=== PATIENT | male | born 1960 | race Two or more races ===

== ENCOUNTER 2019-10-27 11:42 | Emergency (ER) | payer SELFPAY ==
[~2019-10-27] VITALS: Ht 170.2 cm; Wt 99.8 kg
[2019-10-27 13:51] VITALS: BP 117/62
== END 2019-10-27 14:19 | disposition home or self-care (01) ==
LOC: ER 11:42
DX: J84.89 Other specified interstitial pulmonary diseases (principal); J40 Bronchitis, not specified as acute or chronic; E11.9 Type 2 diabetes mellitus without complications; I10 Essential (primary) hypertension; F17.210 Nicotine dependence, cigarettes, uncomplicated
CPT/HCPCS: 71045

== ENCOUNTER 2024-12-11 18:47 | Inpatient (IN) | payer BC, OTHER ==
[~2024-12-11] VITALS: Ht 170.2 cm; Wt 90.3 kg
--- NOTE | 2024-12-11 19:10 | ED.PDOC ---
General HPI Comments 64-year-old male who came to ER due to urinary issues. Patient has history of hypertension, diabetes and kidney stones. Patient has poor compliance to his medications. States for the past 3 days, he has been having gross hematuria, with suprapubic abdominal pain and lower back pains. Denies any nausea or vomit ing. Denies any dysuria or fever. Upon arrival blood pressure was 225/134 mm Hg Chief Complaint: Urinary Time Seen by MD: 19:09 Reviewed notes: Nurses Notes Allergies: Coded Allergies: NO KNOWN ALLERGIES (Unverified , 10/27/19) Information Source: Patient Mode of Arrival: Ambulatory Severity: Moderate Timing: Days Duration: Since onset Has not urinated for: Minutes Onset: Spontaneous Symptoms: Hematuria History of: Kidney stone Location: Suprapubic associated signs and symptoms: Abdominal Pain, Hematuria Past Medical History PAST MEDICAL HISTORY: DM, HTN, Kidney Stones Surgical History: Denies all surgeries Family History Family History: Reviewed,noncontributory to illness Social History Smoker: Cigarettes Alcohol: Denies ETOH Use Drugs: Denies Drug Use Lives In: Home Constitutional: denies: chills, diaphoresis, fatigue, fever, malaise, sweats, weakness, others EENTM: denies: blurred vision, double vision, ear bleeding, ear discharge, ear drainage, ear pain, ear ringing, eye pain, eye redness, hearing loss, mouth pain, mouth swelling, nasal discharge, nose bleeding, nose congestion, nose pain, photophobia, tearing, throat pain, throat swelling, voice changes, others Respiratory: denies: cough, hemoptysis, orthopnea, SOB at rest, shortness of breath, SOB with excertion, stridor, wheezing, others Cardiovascular: denies: chest pain, dizzy spells, diaphoresis, Dyspnea on exertion, edema, irregular heart beat, left arm pain, lightheadedness, palpitations, PND, syncope, others Gastrointestinal: reports: abdominal pain Genitourinary: reports: hematuria; denies: burning, dysuria, flank pain, frequency, incontinence, penile discharge, penile sore, pain, testicle pain, testicle swelling, urgency, others Neurological: denies: dizziness, fainting, headache, left sided numbness, left sided weakness, numbness, paresthesia, pre-existing deficit, right sided numbness, right sided weakness, seizure, speech problems, tingling, tremors, weakness, others Musculoskeletal: denies: back pain, gout, joint pain, joint swelling, muscle pain, muscle stiffness, neck pain, others Integumetry: denies: bruises, change in color, change in hair/nails, dryness, laceration, lesions, lumps, rash, wounds, others Allergic/Immunocompromised: denies: Difficulty Healing, Frequent Infections, Hives, Itching, others Hematologic/Lymphatic: denies: anemia, blood clots, easy bleeding, easy bruising, swollen glands, others Endocrine: denies: excessive hunger, excessive sweating, excessive thirst, excessive urination, flushing, intolerance to cold, intolerance to heat, unexplained weight gain, unexplained weight loss, others Psychiatric: denies: anxiety, bipolar disorder, depression, hopeless, panic disorder, schizophrenia, sleepless, suicidal, others Physical Exam General Appearance: No Apparent Distress, Normal HEENT: Normal ENT Inspection, Pharynx Normal, TMs Normal Neck: Full Range of Motion, Non-Tender, Normal, Normal Inspection Respiratory: Chest Non-Tender, Lungs Clear, No Accessory Muscle Use, No Respiratory Distress, Normal Breath Sounds Cardiovascular: No Edema, No JVD, No Murmur, No Gallop, Normal Peripheral Pulses, Regular Rate/Rhythm Breast Exam: Deferred Gastrointestinal: No Organomegaly, Non Tender, No Pulsatile Mass, Normal Bowel Sounds, Soft Genitalia: Deferred Pelvic: Deferred Rectal: Deferred Extremities: No calf tenderness, Normal capillary refill, Normal inspection, Normal range of motion, Non-tender, No pedal edema Musculoskeletal : Apperance: Normal Neurologic: Alert, 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 Was a procedure done?: No Differential Diagnosis Kidney stone (Female): N/A Kidney stone (Male): Strain, Urinary obstruction, Urolithiasis, Renal infarction, Urinary tract infection Penile/Scrotal: N/A Urinary Problem (Male): Urinary Retention, Urolithiasis, UTI Urinary Problem (Female): N/A Time of 1ST Reevaluation: 19:04 Reevaluation 1ST: Unchanged Patient Education/Counseling: Diagnosis, Treatment Family Education/Counseling: No Family Present Critical Care Note Critical Care Time?: Yes (35 min-critical care time only) Critical care comment: Hypertensive urgency Stability Stability form required: No Heart Score Heart Score: Heart Score Response (Comments) Value History N/A 0 EKG N/A 0 Age N/A 0 Risk Factors N/A 0 Troponin N/A 0 Total 0 I personally scribed for FARHAN ALICEA MD ([email or web address]) on 12/11/24 at 19:10. Electronically submitted by Benjie Abarca ([facility]). FARHAN ALICEA MD December 11, 2024 19:10
[2024-12-11 19:15] VITALS: PULSE 95; RESP 15; O2SAT 93
[2024-12-11 19:19] LABS: Basophils # (auto) 0 10 ^3/uL (0-0.2); Basophils % (auto) 0.5 % (0.0-2.0); Eosinophils # (auto) 0.2 10 ^3/uL (0-0.8); Eosinophils % (auto) 3.3 % (0.0-7.0); Hematocrit 48.8 % (41.0-53.0); Hemoglobin 16.5 g/dL (13.5-17.5); Lymphocytes % (auto) 27.1 % (10.0-50.0); Mean Corpuscular Hemoglobin 28.1 pg (28.0-32.0); Mean Corpuscular Hgb Conc. 33.9 g/dL (32.0-36.0); Mean Corpuscular Volume 83.1 fL (80.0-100.0); Monocytes # (auto) 0.6 10 ^3/uL (0-1.3); Monocytes % (auto) 8.1 % (0.0-12.0); Neutrophils # (auto) 4.6 10 ^3/uL (1.6-8.6); Nucleated Red Blood Cells % 0.3 %; Platelet Count (auto) 134 10^3/uL (140-450); Red Blood Cells 5.88 10^6/uL (4.5-5.90); Red Cell Distribution Width 14.4 % (11.8-14.3); White Blood Cell 7.5 10^3/uL (4.4-10.8)
[2024-12-11 19:27] LABS: Chloride 104 mmol/L (98-107); Potassium 3.8 mmol/L (3.5-5.1); Sodium 136 mmol/L (136-145)
[2024-12-11 19:28] LABS: Anion Gap 9 (5-15); Calcium 10.1 mg/dL (8.7-10.4); Carbon Dioxide 23 mmol/L (20-31)
[2024-12-11 19:33] LABS: BUN/Creatinine Ratio 11.3 (10.0-20.0); Blood Urea Nitrogen 13 mg/dL (9-23)
[2024-12-11 19:36] LABS: Glucose 301 mg/dL (74-106)
[2024-12-11 19:37] LABS: INR 1.15 (0.9-1.15); Partial Thromboplastin Time 34.8 SEC (24.5-34.5)
[2024-12-11 20:16] LABS: Urine Bacteria None Seen /hpf (None Seen); Urine Blood 3+ /uL (Negative); Urine Clarity Clear (Clear); Urine Color Light-Yellow (Yellow); Urine Hyaline Cast FEW /lpf (0 - 2); Urine Protein, UAD 2+ (Negative); Urine Specific Gravity 1.012 (1.001-1.035); Urine Squamous Epithelial Cell FEW /hpf (<5); Urine Urobilinogen Normal (Negative); Urine WBC 11 /HPF (0-3)
--- NOTE | 2024-12-11 20:19 | DVH ---
EXAM: CT HEAD WITHOUT CONTRAST INDICATION: htn carolyne TECHNIQUE: CT of the head without intravenous contrast. Radiation Dose : 1. Head: CT Dose: CTDI volume is 61.25 mGy. Dose-length product is 1206.82 mGy*cm The dose indicators for CT are the volume Computed Tomography (CT) Dose Index (CTDIvol) and the Dose Length Product (DLP), and are measured in units of mGy and mGy-cm, respectively. These indicators are not patient dose, but values generated from the CT scanner acquisition factors. The report includes radiation exposure data for exposures received during this examination. COMPARISON: None FINDINGS: There is no evidence of acute intracranial hemorrhage, extra-axial collection, mass effect, midline s hift, herniation or hydrocephalus. The ventricles, sulci and cisterns are age appropriate. The santamaria-white differentiation is intact. Patchy periventricular and subcortical white matter hypoattenuation is nonspecific but may be related to small vessel ischemic disease. The visualized paranasal sinuses and mastoid air cells are clear. The surrounding soft tissues and osseous structures are unremarkable. IMPRESSION: 1. No acute intracranial abnormality. Radiation optimization: All CT scans at this facility use at least one of these dose optimization elenita hniques: automated exposure control mA and/or kV adjustment per patient size (includes targeted exam s where dose is matched to clinical indication) or iterative reconstruction.
--- NOTE | 2024-12-11 20:20 | DVH ---
CHEST RADIOGRAPH Indication: htn Technique: Single frontal view of the chest was obtained COMPARISON: None FINDINGS: Lines and Tubes: None Lungs: Clear Pleura: No effusion. No pneumothorax. Cardiomediastinal contours: Unremarkable IMPRESSION: No abnormality demonstrated.
[2024-12-11] MEDS: SODIUM CHLORIDE 0.9% 1,000 ML IV ONE (20:22)
[2024-12-11] MEDS: hydrALAZINE HCL 20 MG/ML VL IV ONE (20:23)
--- NOTE | 2024-12-11 20:29 | DVH ---
Exam: CT CT AB PEL WO CON-NO ORAL OR IV History: hematuria Comparison Study: None available at time of dictation. TECHNIQUE: Multidetector CT of the abdomen was performed from lung bases to pubic symphysis. Imaging was performed without IV contrast. Axial, coronal and sagittal multiplanar reformats were obtained fr om the axial data set by the technologist. Radiation Dose Information: CT Dose: CTDI volume is 13.75 mGy. Dose-length product is 739.3 mGy*cm FINDINGS: Evaluation of solid organs is limited due to lack of intravenous contrast use. Findings: Lung Bases: No acute or significant lung base finding. Normal heart size. No pleural or pericardial effusion. Liver: The liver is normal in size. No focal lesions. Gallbladder and Biliary Tree: Unremarkable Spleen: Unremarkable Pancreas: The pancreas is grossly normal in appearance. Adrenal Glands: Unremarkable Kidneys: Kidneys are grossly normal without calculi or hydronephrosis. Bladder: The bladder close to the bladder fundus appears to be a 12 x 19 mm soft tissue density May o r may not be attached to the anterior wall of the bladder. This may represent blood clot or polyp or neoplasm. Bowel: The stomach is grossly normal in appearance. Small bowel and colon are normal in caliber and d istribution. The appendix is not visualized; however, no secondary findings of acute appendicitis id entified. Ascites: Absent Lymphadenopathy: No mesenteric, retroperitoneal or periportal lymphadenopathy. Abdominal Wall and Mesentery: 17 18 mm fat containing umbilical hernia Vasculature: The visualized abdominal aorta is normal in size and caliber. Evaluation of abdominal a nd pelvic vessels is limited due to lack of intravenous contrast. Pelvic Organs: Unremarkable Musculoskeletal: No aggressive focal bony lesions, acute fractures or dislocation. Soft tissues: Unremarkable IMPRESSION: 1. No nephrolithiasis or hydronephrosis. 2. 12 x 19 mm soft tissue density close to the fundus of the bladder. Attachment to the anterior wall of the bladder can not be ruled out. This may represent a blood clot a tumor or a polyp. Radiation optimization: All CT scans at this facility use at least one of these dose optimization te chniques: automated exposure control mA and/or kV adjustment per patient size (includes targeted exa ms where dose is matched to clinical indication) or iterative reconstruction.
[2024-12-11] MEDS ORDERED: HYDROcodone-ACET 5/325MG TAB PO PRN (21:45)
[2024-12-11] MEDS ORDERED: DOCUSATE SOD 100 MG CAP PO PRN (21:45)
[2024-12-11] MEDS ORDERED: ACETAMINOPHEN 325 MG TAB PO PRN (21:45)
[2024-12-11] MEDS ORDERED: DEXTROSE (50%) 50ML SYRG IV PRN (21:45)
[2024-12-11] MEDS ORDERED: ONDANSETRON HCL 4 MG/2 ML VIAL IV PRN (21:45)
--- NOTE | 2024-12-11 22:04 | DVHHP2 ---
History of Present Illness Reason for Visit: Hematuria History of Present Illness The patient is a 64-year-old male with past medical history of kidney stones, hypertension, and DM who presented to [facility] ED with complaint of hematuria. Patient has history of hypertension, diabetes and kidney stones. Patient has poor compliance of his medications; states for the past 3 days, he has been having gross hematuria, suprapubic abdominal pain, and lower back pains. Patient was seen and evaluated in the ED, laboratory data shows WBC 7.5, platelets 134, sodium 136, potassium 3.8, BUN 13, creatinine 1.15, glucose 301, troponin 11, BNP 53.69, blood pressure 232/124 trending down to 135/60, heart rate 95, temperature 99.0 F, O2 saturation 94% on oxygen. Please see medication orders section in the computer. On my assessment, patient denied chest pain, no headache, no dizziness, no shortness of breath, no nausea, no vomiting, no fever, no chills. Patient was admitted for further evaluation and medical management. Past Medical History DM, HTN, Kidney Stones Past Surgical History Denies all surgeries Family History Reviewed, noncontributory to the management of this case. Past Social History The patient lives at home, smokes cigarettes, denies alcohol or illicit drugs abuse. Review of Systems Constitutional: No: Fever, Chills, Sweats, Weakness, Malaise, Other Eyes: No: Pain, Vision change, Conjunctivae inflammation, Eyelid inflammation, Other, Redness ENT: No: Ear pain, Ear discharge, Nose pain, Nose discharge, Nose congestion, Mouth pain, Mouth swelling, Throat pain, Throat swelling, Other Respiratory: No: Cough, Dry, Shortness of breath, SOB with excertion, Wheezing, Hemoptysis, Pleuritic Pain, Sputum, Wheezing, Other Cardiovascular: No: Chest Pain, Palpitations, Orthopnea, Paroxysmal Noc. Dyspnea, Edema, Lt Headedness, Other Gastrointestinal: Abdominal Pain; No: Nausea, Vomiting, Diarrhea, Constipation, Melena, Hematochezia, Other Genitourinary: No Dysuria, No Frequency, No Incontinence; Hematuria; No Retention, No Other Musculoskeletal: No: other, neck pain, shoulder pain, arm pain, back pain, hand pain, leg pain, foot pain Skin: No: Rash, Lesions, Jaundice, Bruising, Other Neurological: No: Weakness, Numbness, Incoordination, Change in speech, Confusion, Seizures, Other Allergies: Coded Allergies: NO KNOWN ALLERGIES (Unverified , 10/27/19) Medications Current Medications Medications Dose Ordered Sig/Cesar Route Start Time Stop Time Status Last Admin Dose Admin Hydralazine HCl 10 mg Q6HP PRN IV 12/11/24 21:45 Amlodipine Besylate 5 mg DAILY PO 12/12/24 10:00 Metoprolol Tartrate 25 mg BID PO 12/11/24 22:00 Diagnostic Test (Pha) 1 strip IQ4HR 12/12/24 00:00 Insulin Human Regular IQ4HR SC 12/12/24 00:00 Dextrose 50 ml UD PRN IV 12/11/24 21:45 Sodium Chloride 1,000 ml @ 60 mls/hr [id number] IV 12/11/24 21:45 Acetaminophen/ Hydrocodone Bitart 1 tab Q4HP PRN PO 12/11/24 21:45 Ondansetron HCl 4 mg Q4HP PRN IV 12/11/24 21:45 Docusate Sodium 100 mg BIDPRN PRN PO 12/11/24 21:45 Acetaminophen 650 mg Q6HP PRN PO 12/11/24 21:45 Exam Vital Signs Vital Signs Date Time Temp Pulse Resp B/P (MAP) Pulse Ox O2 Delivery O2 Flow Rate FiO2 12/11/24 20:23 221/129 12/11/24 19:15 95 15 93 Room Air* 0 21 12/11/24 19:15 99.0 99.0 General Appearance: Alert, Oriented X3, Cooperative, No acute distress HEENT: Atraumatic, PERRLA, EOMI, Mucous membr. moist/pink Respiratory: Clear to auscultation, Normal air movement Cardiovascular: Regular rate, Normal S1, Normal S2, No murmurs Abdominal: Normal bowel sounds, Soft, No tenderness, No hepatospenomegaly, No masses Extremities: No clubbing, No cyanosis, No edema, Normal pulses, No tenderness/swelling Skin: No rashes, No breakdown, No significant lesion Neuro: Normal gait, Normal speech, Strength at 5/5 X4 ext, Normal tone, Sensation intact, Cranial nerves 3-12 NL, Reflexes 2+ Psych/Mental Status: Mental status NL, Mood NL Labs/Xrays Labs Test 12/11/24 21:57 12/11/24 20:18 12/11/24 19:06 Range/Units Urine Color Light-yellow Yellow Urine Clarity Clear Clear Urine pH 6.0 5.0-9.0 Urine Specific Gilbert 1.012 1.001-1.035 Urine Protein 2+ H Negative Urine Ketones Negative Negative Urine Blood 3+ H Negative /uL Urine Nitrite Negative Negative Urine Bilirubin Negative Negative Urine Urobilinogen Normal Negative mg/dL Urine Leukocyte Esterase Negative Negative /uL Urine RBC 360 0 - 3 /hpf Urine Microscopic WBC 11 H 0-3 /HPF Urine Squamous Epithelial Cells Few <5 /hpf Urine Bacteria None seen None Seen /hpf Urine Hyaline Casts Few 0 - 2 /lpf Urine Glucose 4+ H Normal mg/dL Troponin I High Sensitivity 11 </=54 ng/L White Blood Count 7.5 4.4-10.8 10^3/uL Red Blood Count 5.88 4.5-5.90 10^6/uL Hemoglobin 16.5 13.5-17.5 g/dL Hematocrit 48.8 41.0-53.0 % Mean Corpuscular Volume 83.1 80.0-100.0 fL Mean Corpuscular Hemoglobin 28.1 28.0-32.0 pg Mean Corpuscular Hemoglobin Concent 33.9 32.0-36.0 g/dL Red Cell Distribution Width 14.4 H 11.8-14.3 % Platelet Count 134 L 140-450 10^3/uL Mean Platelet Volume 9.3 6.9-10.8 fL Neutrophils (%) (Auto) 61.0 37.0-80.0 % Lymphocytes (%) (Auto) 27.1 10.0-50.0 % Monocytes (%) (Auto) 8.1 0.0-12.0 % Eosinophils (%) (Auto) 3.3 0.0-7.0 % Basophils (%) (Auto) 0.5 0.0-2.0 % Neutrophils # (Auto) 4.6 1.6-8.6 10 ^3/uL Lymphocytes # (Auto) 2.0 0.4-5.4 10 ^3/uL Monocytes # (Auto) 0.6 0-1.3 10 ^3/uL Eosinophils # (Auto) 0.2 0-0.8 10 ^3/uL Basophils # (Auto) 0 0-0.2 10 ^3/uL Nucleated Red Blood Cells 0.3 % Prothrombin Time 12.0 H 9.3-11.8 sec Prothrombin Time INR 1.15 0.9-1.15 Activated Partial Thromboplast Time 34.8 H 24.5-34.5 SEC Sodium Level 136 136-145 mmol/L Potassium Level 3.8 3.5-5.1 mmol/L Chloride Level 104 98-107 mmol/L Carbon Dioxide Level 23 20-31 mmol/L Anion Gap 9 5-15 Blood Urea Nitrogen 13 9-23 mg/dL Creatinine 1.15 0.700-1.30 mg/dL Glomerular Filtration Rate Calc 71 >90 mL/min BUN/Creatinine Ratio 11.3 10.0-20.0 Serum Glucose 301 H 74-106 mg/dL Calcium Level 10.1 8.7-10.4 mg/dL B-Type Natriuretic Peptide 53.69 0-100 pg/mL PATIENT: FELIZ NAJERA ACCT: [id number] UNIT: [id number] : 1960 LOC: ER ROOM / BED: / AGE / SEX: 64 / M ADM STATUS: REG ER SERVICE 45 ORDERING PHYSICIAN: FARHAN ALICEA MD PROCEDURE(s): ABPL - CT AB PEL WO CON-NO ORAL OR IV REASON: hematuria ORDER NUMBER(s): [id number], ACCESSION NUMBER(s): [id number] Exam: CT CT AB PEL WO CON-NO ORAL OR IV History: hematuria Comparison Study: None available at time of dictation. TECHNIQUE: Multidetector CT of the abdomen was performed from lung bases to pubic symphysis. Imaging was performed without IV contrast. Axial, coronal and sagittal multiplanar reformats were obtained from the axial data set by the technologist. Radiation Dose Information: CT Dose: CTDI volume is 13.75 mGy. Dose-length product is 739.3 mGy*cm FINDINGS: Evaluation of solid organs is limited due to lack of intravenous contrast use. Findings: Lung Bases: No acute or significant lung base finding. Normal heart size. No pleural or pericardial effusion. Liver: The liver is normal in size. No focal lesions. Gallbladder and Biliary Tree: Unremarkable Spleen: Unremarkable Pancreas: The pancreas is grossly normal in appearance. Adrenal Glands: Unremarkable Kidneys: Kidneys are grossly normal without calculi or hydronephrosis. Bladder: The bladder close to the bladder fundus appears to be a 12 x 19 mm soft tissue density May or may not be attached to the anterior wall of the bladder. This may represent blood clot or polyp or neoplasm. Bowel: The stomach is grossly normal in appearance. Small bowel and colon are normal in caliber and distribution. The appendix is not visualized; however, no secondary findings of acute appendicitis identified. Ascites: Absent Lymphadenopathy: No mesenteric, retroperitoneal or periportal lymphadenopathy. Abdominal Wall and Mesentery: 17 18 mm fat containing umbilical hernia Vasculature: The visualized abdominal aorta is normal in size and caliber. Evaluation of abdominal and pelvic vessels is limited due to lack of intravenous contrast. Pelvic Organs: Unremarkable Musculoskeletal: No aggressive focal bony lesions, acute fractures or dislocation. Soft tissues: Unremarkable IMPRESSION: 1. No nephrolithiasis or hydronephrosis. 2. 12 x 19 mm soft tissue density close to the fundus of the bladder. Attachment to the anterior wall of the bladder can not be ruled out. This may represent a blood clot a tumor or a polyp. ORDERING PHYSICIAN: FARHAN ALICEA MD PROCEDURE(s): CXRP - CHEST PORTABLE REASON: htn ORDER NUMBER(s): [id number], ACCESSION NUMBER(s): [id number] CHEST RADIOGRAPH Indication: htn Technique: Single frontal view of the chest was obtained COMPARISON: None FINDINGS: Lines and Tubes: None Lungs: Clear Pleura: No effusion. No pneumothorax. Cardiomediastinal contours: Unremarkable IMPRESSION: No abnormality demonstrated. ORDERING PHYSICIAN: FARHAN ALICEA MD PROCEDURE(s): HWOCT - HEAD WITHOUT CONTRAST REASON: htn carolyne ORDER NUMBER(s): [id number], ACCESSION NUMBER(s): [id number] EXAM: CT HEAD WITHOUT CONTRAST INDICATION: htn carolyne TECHNIQUE: CT of the head without intravenous contrast. Radiation Dose: 1. Head: CT Dose: CTDI volume is 61.25 mGy. Dose-length product is 1206.82 mGy*cm The dose indicators for CT are the volume Computed Tomography (CT) Dose Index (CTDIvol) and the Dose Length Product (DLP), and are measured in units of mGy and mGy-cm, respectively. These indicators are not patient dose, but values generated from the CT scanner acquisition factors. The report includes radiation exposure data for exposures received during this examination. COMPARISON: None FINDINGS: There is no evidence of acute intracranial hemorrhage, extra-axial collection, mass effect, midline shift, herniation or hydrocephalus. The ventricles, sulci and cisterns are age appropriate. The santamaria-white differentiation is intact. Patchy periventricular and subcortical white matter hypoattenuation is nonspecific but may be related to small vessel ischemic disease. The visualized paranasal sinuses and mastoid air cells are clear. The surrounding soft tissues and osseous structures are unremarkable. IMPRESSION: 1. No acute intracranial abnormality. Assessment/Plan Assessment/Plan Hypertensive urgency Hematuria Diabetes mellitus with hyperglycemia Plan 1. Admit to telemetry unit 2. Breathing treatment 3. Pain control management 4. Management of fluids and electrolytes 5. Consultation for hospitalist 6. Diagnostic tests chest x-ray 7. DVT prophylaxis-on SCDs 8. Repeat labs CBC, CMP in a.m. 9. Continue with current medical management 10. Treatment plan discussed with patient and RN. Patient verbalized understanding. Plan discussed with: Patient, Other (RN) My Orders Orders - SEVERO JUDD DNP Procedure Category Date Status Time Hydralazine Injection PHA 12/11/24 In Process (Apresoline Inject 21:45 Amlodipine Tablet PHA 12/12/24 In Process (Norvasc Tablet) 10:00 Metoprolol Tartrate PHA 12/11/24 In Process Tablet (Lopressor Ta 22:00 * Urology Consult CONS 12/11/24 Transmitted 21:37 Glucose Blood PHA 12/12/24 In Process (Accu-Chek Comfort 00:00 Insulin R (Human) PHA 12/12/24 In Process (Insulin R) 00:00 Dextrose 50% Syringe PHA 12/11/24 In Process 21:45 Allergies BRODERICK 12/11/24 In Process 21:37 Code Status CODE 12/11/24 Transmitted 21:37 Sodium Chloride 0.9% PHA 12/11/24 In Process 21:45 Oxygen Per Hour RT 12/11/24 Transmitted 21:37 Hydrocodone-Acet PHA 12/11/24 In Process 5/325mg Tab ([place] 21:45 Ondansetron Hcl PHA 12/11/24 In Process (Zofran) 21:45 Docusate Sodium PHA 12/11/24 In Process Capsule (Colace 21:45 Complete Blood Count LAB 12/12/24 Verified 04:00 Comprehensive LAB 12/12/24 Verified Metabolic Panel 04:00 Condition: Serious BRODERICK 12/11/24 In Process 21:37 Acetaminophen Tablet PHA 12/11/24 In Process (Tylenol Tablet) 21:45 Bedrest With Bathroom BRODERICK 12/11/24 In Process Privileg 21:37 Sequential BRODERICK 12/11/24 In Process Compression Device Consistent DIET 12/12/24 Transmitted Carb(Ccho)Diabetes Breakfast Admit ADMIT 12/11/24 Verified 22:03 Nitroglycerin PHA 12/11/24 Verified Sublingual (Ntrostat 22:15 Morphine Sulfate PHA 12/11/24 Verified Injection 22:15 Notify Md Of Changes BR[place]ICK 12/11/24 Verified From Base 22:03 [employer] For [facility] 12/11/24 Verified 24 Hours 22:03 Emergency Dysrhythmia [facility] 12/11/24 Verified Protocol 22:03 Oxygen By Nasal RT 12/11/24 Verified Cannula 22:03 Problem List: (1) Hypertensive urgency (2) Hematuria (3) Diabetes mellitus with hyperglycemia Date of Service: December 12, 2024 Billing Provider: SEVERO JUDD DNP Common Visit Codes: [id number] INP/OBS CARE (HIGH) SEVERO JUDD DNP December 11, 2024 22:04
[2024-12-11] MEDS: SODIUM CHLORIDE 0.9% 1,000 ML IV SCH (22:07)
[2024-12-11] MEDS: METOPROLOL TARTRATE 25 MG TAB PO SCH (22:07)
[2024-12-11] MEDS: amLODIPine BESYLATE 5 MG TAB PO ONE (22:07)
[2024-12-11] MEDS ORDERED: MORPHINE SULFATE INJ 2 MG/ml SYRG IV PRN (22:15)
[2024-12-11] MEDS ORDERED: NITROGLYCERIN 0.4 MG SL TAB SL PRN (22:15)
[2024-12-11] MEDS: hydrALAZINE HCL 20 MG/ML VL IV PRN (23:38)
[2024-12-11] MEDS: ACCU-CHEK COMFORT CURVE STRIP VI SCH (23:43)
[2024-12-11] MEDS: InsuLIN REG 1unit/0.01ml Soln (100units/ml) SC SCH (23:46)
[2024-12-12] VITALS (8 sets, daily range): BP systolic 135–155; BP diastolic 60–95; PULSE 58–74; RESP 16–18; TEMP 96.7–98; O2SAT 90–99
[2024-12-12 06:05] LABS: Basophils # (auto) 0.1 10 ^3/uL (0-0.2); Basophils % (auto) 1.1 % (0.0-2.0); Eosinophils # (auto) 0.2 10 ^3/uL (0-0.8); Eosinophils % (auto) 3.5 % (0.0-7.0); Hematocrit 48.6 % (41.0-53.0); Hemoglobin 16.4 g/dL (13.5-17.5); Lymphocytes # (auto) 1.7 10 ^3/uL (0.4-5.4); Lymphocytes % (auto) 24.8 % (10.0-50.0); Mean Corpuscular Hgb Conc. 33.7 g/dL (32.0-36.0); Mean Corpuscular Volume 82.9 fL (80.0-100.0); Monocytes # (auto) 0.6 10 ^3/uL (0-1.3); Monocytes % (auto) 7.9 % (0.0-12.0); Neutrophils # (auto) 4.4 10 ^3/uL (1.6-8.6); Neutrophils % (auto) 62.7 % (37.0-80.0); Nucleated Red Blood Cells % 0.1 %; Platelet Count (auto) 138 10^3/uL (140-450); Red Blood Cells 5.85 10^6/uL (4.5-5.90); Red Cell Distribution Width 14.6 % (11.8-14.3)
[2024-12-12 06:24] LABS: Alanine Aminotransferase 26 U/L (7-40); Anion Gap 10 (5-15); Aspartate Aminotransferase 21 U/L (13-40); BUN/Creatinine Ratio 12.2 (10.0-20.0); Blood Urea Nitrogen 11 mg/dL (9-23); Calcium 9.5 mg/dL (8.7-10.4); Carbon Dioxide 23 mmol/L (20-31); Potassium 3.6 mmol/L (3.5-5.1); Sodium 140 mmol/L (136-145); Total Protein 6.8 g/dL (5.7-8.2)
[2024-12-12 06:25] LABS: Albumin 4.1 g/dL (3.2-4.8); Alkaline Phosphatase 126 U/L (46-116); Bilirubin, Total 0.8 mg/dL (0.2-1.0); Chloride 107 mmol/L (98-107); Glucose 186 mg/dL (74-106)
[2024-12-12] MEDS: amLODIPine BESYLATE 5 MG TAB PO SCH (09:03)
[2024-12-13 01:00] VITALS: BP 137/86; PULSE 57; RESP 19; TEMP 98; O2SAT 95
[2024-12-13 05:00] VITALS: BP 154/84; PULSE 56; RESP 18; TEMP 97.9; O2SAT 92
[2024-12-13 08:00] VITALS: PULSE 63; RESP 17; O2SAT 96
[2024-12-13 09:29] VITALS: BP 164/97; PULSE 58; RESP 18; TEMP 97.6; O2SAT 97
[2024-12-13 13:00] VITALS: BP 155/101; PULSE 55; RESP 18; TEMP 98.1; O2SAT 97
[2024-12-13 15:23] LABS: LDL Cholesterol 89 mg/dL (< 100)
[2024-12-13 15:24] LABS: Cholesterol 142 mg/dL (< 200)
[2024-12-13] MEDS ORDERED: NIFE1TAB30 PO (15:27)
[2024-12-13] MEDS ORDERED: EMPA1TAB PO (15:27)
[2024-12-13] MEDS ORDERED: LOSA100T33 PO (15:27)
[2024-12-13 15:29] LABS: HDL Cholesterol 32 mg/dL (40-59); Triglycerides 287 mg/dL (< 150)
[2024-12-13] MEDS ORDERED: CEPH250C PO (15:30)
[2024-12-13] MEDS: hydrALAZINE HCL 25 MG TAB PO ONE (15:30)
[2024-12-13] MEDS ORDERED: TAMS-35 PO (15:30)
--- NOTE | 2024-12-13 15:32 | DVHDS2 ---
Discharge Summary Date of Admission December 11, 2024 at 22:03 Date of Discharge: December 13, 2024 Admitting Diagnosis Hypertensive urgency Labs/Diagnostic Data: Laboratory Results Test 12/13/24 14:52 12/13/24 12:33 12/12/24 05:31 12/11/24 22:08 POC Glucose 192 mg/dl (70-106) White Blood Count 7.0 10^3/uL (4.4-10.8) Red Blood Count 5.85 10^6/uL (4.5-5.90) Hemoglobin 16.4 g/dL (13.5-17.5) Hematocrit 48.6 % (41.0-53.0) Mean Corpuscular Volume 82.9 fL (80.0-100.0) Mean Corpuscular Hemoglobin 28.0 pg (28.0-32.0) Mean Corpuscular Hemoglobin Concent 33.7 g/dL (32.0-36.0) Red Cell Distribution Width 14.6 % (11.8-14.3) Platelet Count 138 10^3/uL (140-450) Mean Platelet Volume 9.1 fL (6.9-10.8) Neutrophils (%) (Auto) 62.7 % (37.0-80.0) Lymphocytes (%) (Auto) 24.8 % (10.0-50.0) Monocytes (%) (Auto) 7.9 % (0.0-12.0) Eosinophils (%) (Auto) 3.5 % (0.0-7.0) Basophils (%) (Auto) 1.1 % (0.0-2.0) Neutrophils # (Auto) 4.4 10 ^3/uL (1.6-8.6) Lymphocytes # (Auto) 1.7 10 ^3/uL (0.4-5.4) Monocytes # (Auto) 0.6 10 ^3/uL (0-1.3) Eosinophils # (Auto) 0.2 10 ^3/uL (0-0.8) Basophils # (Auto) 0.1 10 ^3/uL (0-0.2) Nucleated Red Blood Cells 0.1 % Sodium Level 140 mmol/L (136-145) Potassium Level 3.6 mmol/L (3.5-5.1) Chloride Level 107 mmol/L (98-107) Carbon Dioxide Level 23 mmol/L (20-31) Anion Gap 10 (5-15) Blood Urea Nitrogen 11 mg/dL (9-23) Creatinine 0.90 mg/dL (0.700-1.30) Glomerular Filtration Rate Calc 95 mL/min (>90) BUN/Creatinine Ratio 12.2 (10.0-20.0) Serum Glucose 186 mg/dL (74-106) Calcium Level 9.5 mg/dL (8.7-10.4) Total Bilirubin 0.8 mg/dL (0.2-1.0) Aspartate Amino Transferase (AST) 21 U/L (13-40) Alanine Aminotransferase (ALT) 26 U/L (7-40) Alkaline Phosphatase 126 U/L (46-116) Total Protein 6.8 g/dL (5.7-8.2) Albumin 4.1 g/dL (3.2-4.8) Troponin I High Sensitivity 13 ng/L (</=54) Test 12/11/24 21:57 12/11/24 19:06 Urine Color Light-yellow (Yellow) Urine Clarity Clear (Clear) Urine pH 6.0 (5.0-9.0) Urine Specific [place] 1.012 (1.001-1.035) Urine Protein 2+ (Negative) Urine Ketones Negative (Negative) Urine Blood 3+ /uL (Negative) Urine Nitrite Negative (Negative) Urine Bilirubin Negative (Negative) Urine Urobilinogen Normal mg/dL (Negative) Urine Leukocyte Esterase Negative /uL (Negative) Urine RBC 360 /hpf (0 - 3) Urine Microscopic WBC 11 /HPF (0-3) Urine Squamous Epithelial Cells Few /hpf (<5) Urine Bacteria None seen /hpf (None Seen) Urine Hyaline Casts Few /lpf (0 - 2) Urine Glucose 4+ mg/dL (Normal) Prothrombin Time 12.0 sec (9.3-11.8) Prothrombin Time INR 1.15 (0.9-1.15) Activated Partial Thromboplast Time 34.8 SEC (24.5-34.5) B-Type Natriuretic Peptide 53.69 pg/mL (0-100) Other Laboratory Tests 12/12/24 05:31 Brief Hx & Hospital Course: The patient is a 64-year-old male with past medical history of kidney stones, hypertension, and DM who presented to [facility] ED with complaint of hematuria. Patient has history of hypertension, diabetes and kidney stones. Patient has poor compliance of his medications; states for the past 3 days, he has been having gross hematuria, suprapubic abdominal pain, and lower back pains. Patient was seen and evaluated in the ED, laboratory data shows WBC 7.5, platelets 134, sodium 136, potassium 3.8, BUN 13, creatinine 1.15, glucose 301, troponin 11, BNP 53.69, blood pressure 232/124 trending down to 135/60. Patients symptoms have improved, will followup with me in clinic, patient started on BP meds, will be counseled on lifestyle modifications and exercise. Condition at Discharge: Stable Final Diagnosis/Problems List Hypertensive urgency Hematuria due to UTI Diabetes mellitus with hyperglycemia Discharge Disposition: Home Discharge Instruct/Medications Diet: Consistent carbohydrate Activity: Light activity Follow Up/Referral: Dr. oFng Urology as outpatient Medications: see med req Discharge Statement: "Patient was advised to return to the ER or call 911 if any headaches, dizziness, shortness of breath, chest pain, abdominal pain, bleeding, fevers, or worsening of medical condition. Patient was counseled about treatment plan, medications, possible side effects, patientverbalized understanding. All questions were answered to the best of my ability. This discharge took greater then 30 minutes in planning, reviewing documentation, counseling the patient, and discussing with other team members." ASSESSMENT ASSESSMENT Assessment Date of Service: December 13, 2024 Billing Provider: LUIS ANTONIO FONG MD Common Visit Codes: [id number] DISCH DAY <30MIN LUIS ANTONIO FONG MD December 13, 2024 15:32
[2024-12-13 16:13] VITALS: BP 158/90; PULSE 64; RESP 17; TEMP 36.7; O2SAT 97
--- NOTE | 2024-12-13 17:00 | DVHPN2 ---
Reviewed: Care Plan, H&P, Labs, Medications, Previous Orders, Radiology Changes from previous H/P or p: No Changes General: Per HPI Eyes: No Pain, No Vision change, No Conjunctivae inflammation, No Eyelid inflammation, No Other, No Redness ENT: No Ear pain, No Ear discharge, No Nose pain, No Nose discharge, No Nose congestion, No Mouth pain, No Mouth swelling, No Throat pain, No Throat swelling, No Other Cardiovascular: No Chest Pain, No Palpitations, No Orthopnea, No Paroxysmal Noc. Dyspnea, No Edema, No Lt Headedness, No Other Respiratory: No Cough, No Dry, No Shortness of breath, No SOB with excertion, No Wheezing, No Hemoptysis, No Pleuritic Pain, No Sputum, No Other Gastrointestinal: No Nausea, No Vomiting; Abdominal Pain; No Diarrhea, No Constipation, No Melena, No Hematochezia, No Other Genitourinary: No Dysuria, No Frequency, No Incontinence; Hematuria; No Retention, No Other Musculoskeletal: No other, No neck pain, No shoulder pain, No arm pain, No back pain, No hand pain, No leg pain, No foot pain Skin: No Rash, No Lesions, No Jaundice, No Bruising, No Other Objective Vitals Vital Signs Date Time Temp Pulse Resp B/P (MAP) Pulse Ox O2 Delivery O2 Flow Rate FiO2 12/13/24 16:13 36.7 64 17 97 12/13/24 13:00 155/101 (119) 12/13/24 08:00 Room Air* 0 21 Intake/Output Intake and Output 12/13/24 07:00 Intake Total 1520 ml Balance 1520 ml Intake Oral 1520 ml # Voids 4 General Appearance: Alert, Oriented X3 Cardiovascular: Regular rate, Normal S1, Normal S2 Abdomen: Normal bowel sounds, Soft Medications Current Medications Medications Dose Ordered Sig/Cesar Route Start Time Stop Time Status Last Admin Dose Admin Hydralazine HCl 10 mg Q6HP PRN IV 12/11/24 21:45 12/11/24 23:38 10 MG Amlodipine Besylate 5 mg DAILY PO 12/12/24 10:00 12/13/24 08:23 5 MG Metoprolol Tartrate 25 mg BID PO 12/11/24 22:00 12/13/24 08:23 25 MG Diagnostic Test (Pha) 1 strip IQ4HR 12/12/24 00:00 12/13/24 12:35 1 STRIP Insulin Human Regular IQ4HR SC 12/12/24 00:00 12/13/24 13:07 3 UNITS Dextrose 50 ml UD PRN IV 12/11/24 21:45 Acetaminophen/ Hydrocodone Bitart 1 tab Q4HP PRN PO 12/11/24 21:45 Ondansetron HCl 4 mg Q4HP PRN IV 12/11/24 21:45 Docusate Sodium 100 mg BIDPRN PRN PO 12/11/24 21:45 Acetaminophen 650 mg Q6HP PRN PO 12/11/24 21:45 Nitroglycerin 0.4 mg Q5MINP PRN SL 12/11/24 22:15 Morphine Sulfate 2 mg Q30M PRN IV 12/11/24 22:15 Laboratory Results Laboratory Tests 12/12/24 05:31 Lipid panel Test 12/13/24 14:52 Cholesterol Level 142 mg/dL (< 200) HDL Cholesterol 32 mg/dL (40-59) L Triglycerides Level 287 mg/dL (< 150) H HgA1c, TSH Test 12/13/24 14:52 Hemoglobin A1c 10.1 % A1C (<5.7) H Thyroid Stimulating Hormone (TSH) 1.00 uIU/mL (0.55-4.78) Urinalysis Test 12/11/24 21:57 Urine Color Light-yellow (Yellow) Urine Clarity Clear (Clear) Urine pH 6.0 (5.0-9.0) Urine Specific [place] 1.012 (1.001-1.035) Urine Protein 2+ (Negative) H Urine Ketones Negative (Negative) Urine Blood 3+ /uL (Negative) H Urine Nitrite Negative (Negative) Urine Bilirubin Negative (Negative) Urine Urobilinogen Normal mg/dL (Negative) Urine Leukocyte Esterase Negative /uL (Negative) Urine RBC 360 /hpf (0 - 3) Urine Microscopic WBC 11 /HPF (0-3) H Urine Squamous Epithelial Cells Few /hpf (<5) Urine Bacteria None seen /hpf (None Seen) Urine Hyaline Casts Few /lpf (0 - 2) Urine Glucose 4+ mg/dL (Normal) H Labs and/or images reviewed: Labs reviewed by me, Image(s) reviewed by me Assessment/Plan Assessment/Plan The patient is a 64-year-old male with past medical history of kidney stones, hypertension, and DM who presented to [facility] ED with complaint of hematuria. Patient has history of hypertension, diabetes and kidney stones. Patient has poor compliance of his medications; states for the past 3 days, he has been having gross hematuria, suprapubic abdominal pain, and lower back pains. Patient was seen and evaluated in the ED, laboratory data shows WBC 7.5, platelets 134, sodium 136, potassium 3.8, BUN 13, creatinine 1.15, glucose 301, troponin 11, BNP 53.69, blood pressure 232/124 trending down to 135/60, heart rate 95, temperature 99.0 F, O2 saturation 94% on oxygen. Please see medication orders section in the computer. On my assessment, patient denied chest pain, no headache, no dizziness, no shortness of breath, no nausea, no vomiting, no fever, no chills. Patient was admitted for further evaluation and medical management. Hypertensive urgency Hematuria Diabetes mellitus with hyperglycemia dysuria awaiting urology evaluation Plan discussed with: Patient Date of Service: December 12, 2024 Billing Provider: YUMIKO GRAVES DO Common Visit Codes: [id number] INP/OBS CARE(HIGH) YUMIKO GRAVES DO December 13, 2024 17:00
[2024-12-14 08:07] LABS: PSA Free 0.32 ng/mL; Prostate Specific Antigen 1.4 ng/mL (0.0-4.0)
== END 2024-12-13 17:04 | disposition home or self-care (01) | DRG 690 ==
LOC: ER 18:47 → OVERFLOW 22:03 → CENTRAL 12-12 01:36
PROVIDERS: ADMIT Internal Medicine; ATTEND Internal Medicine
DX: N39.0 Urinary tract infection, site not specified (principal); I16.0 Hypertensive urgency; E11.65 Type 2 diabetes mellitus with hyperglycemia; R31.0 Gross hematuria; F17.210 Nicotine dependence, cigarettes, uncomplicated; I10 Essential (primary) hypertension; Z87.442 Personal history of urinary calculi
CPT/HCPCS: 36415; 70450; 71045; 74176; 80048; 80053; 80061; 81001; 82306; 82962; 83036; 83880; 84154; 84443; 84484; 85025; 85610; 85730; 96361; 96374; 99291; G0378; J1815

== ENCOUNTER → 2024-12-23 | Outpatient (CLI) | payer BC ==
[~2024-12-23] MED LIST: CEPH250C PO; EMPA1TAB PO; LOSA100T33 PO; NIFE1TAB30 PO; TAMS-35 PO
--- NOTE | 2024-12-23 10:27 | DVHCARD ---
Cardiology Stress Test [place] Treadmill Stress Test [place] Referring MD: MD Hetal Protocol: Herson (with cardiolite) Reason for referral: Chest Pain Target heart Rate:@85%: 131 Percent MPHR: 155 METS: 10.10 Resting Heart rate: 77 Resting Blood Pressure: 159/94 Exercise Heart Rate: 130 Exercise Blood Pressure: 201/93 Reason for Termination of Test: Completion of Protocol Baseline EKG: NSR Stress EKG: Sinus tachycardia with multiple PACs/PVCs and non ST-T segment changes Functional Capacity: Good Normal Heart Rate Response: Adequate Blood Pressure Response: Hypertensive Clinical response: Non-ischemic Arrhythmia?: No Cardiolite Injected?: Yes ST-T Changes: Non/Minimal Probability of Inducible Ische: Perfusion result pending Comments: Uneventful Herson protocol Date of Service: December 23, 2024 Billing Provider: JULIANO MAYFIELD Cardiology Common Codes: PROCEDURE ONLY Treadmill W/Cardiolite Nuclear: [id number], INTERP, RPT JULIANO MAYFIELD December 23, 2024 10:27
--- NOTE | 2024-12-23 15:22 | DVHSR ---
APPROVED REPORT Exam: Nuclear Stress Test Indication: Chest pain BMI: 0 Medical History Medical History: HTN, Diabetes Allergies: No known drug allergies Stress Test Details Stress Test: Exercise stress testing was performed using a Herson protocol. HR Resting HR: 77 bpmMax Heart Rate (APMHR): 155.315914 bpm Max HR Achieved: 130 bpmTarget HR (85% APMHR): 131.145030 bpm % of APMHR: 83.87 Recovery HR: 102 bpm BP Resting BP: 159/94 mmHg Recovery BP: 146/94 mmHg ECG Resting ECG: Sinus Rhythm Clinical Reason for Termination: Completed protocol Exercise duration: 9 min sec Nurse Comments Recieved ambulatory, A/Ox4 on RA, connected to first coat sander, VS stable. PIV S/L flushes well, revi ewed POC, pt verbalized understanding. Ryan DIRECTOR OF AUDIOLOGY here to monitor exam. Treadmill test performed per protocol. Pt stable, tolerated well, VS returned to baseline. Pt to follow up with mental health clinician for results. Stress ECG Conclusion dilated LV severe lv dysfuntion lvef 34% inferior infarct no major ischemia noted ecg shows SR, PVCs clinical correlate NM EXAM: Myocardial Perfusion REST/STRESS Imaging Protocol: Rest Tc-99m/Stress Tc-99m 1 day Resting Data Rest SPECT myocardial perfusion imaging was performed in supine position 45 minutes following the int ravenous injection of 11.0 mCi of Tc-99m Sestamibi. Time of rest injection: 08:45 Date: 12/23/2024 Time of rest imagin:30 Date: 12/23/2024 Administration Route: IV Administration Site: Right AC Exercise Stress At peak stress, the patient was injected intravenously with 31.3mCi of Tc-99m Sestamibi. Time of stress injection: 10:05 Date: 12/23/2024 Time of stress imagin:50 Date: 12/23/2024 Administration Route: IV Administration Site: Right Arm Heart Rate at time of stress injection: 111 bpm. Patient continued to exercise for 3.5 minute(s). Gated Stress SPECT was performed 45 minutes after stress injection. The images were gated to evaluate regional wall motion and calculate left ventricular ejection fracti on. Stress only was performed in the position. Nuclear Conclusion dilated LV severe lv dysfuntion lvef 34% inferior infarct no major ischemia noted ecg shows SR, PVCs clinical correlate
== END | disposition home or self-care (01) ==
LOC: XYW 08:18
PROVIDERS: ATTEND Internal Medicine
DX: I11.0 Hypertensive heart disease with heart failure (principal); E11.65 Type 2 diabetes mellitus with hyperglycemia; I50.30 Unspecified diastolic (congestive) heart failure; E55.9 Vitamin D deficiency, unspecified; D41.4 Neoplasm of uncertain behavior of bladder; R07.9 Chest pain, unspecified
CPT/HCPCS: 78452; 93017; A9500

== ENCOUNTER 2025-01-06 09:35 | Outpatient (CLI) | payer BC | END 2025-01-06 17:00 | disposition home or self-care (01) | LOC: LAB 09:35 | PROVIDERS: ATTEND Urology | DX: N40.0 Benign prostatic hyperplasia without lower urinary tract symptoms (principal) | CPT/HCPCS: 84153 ==

== ENCOUNTER 2025-01-19 09:00 | Outpatient (CLI) | payer BC ==
[2025-01-19 09:22] LABS: Urine Bacteria None Seen /hpf (None Seen)
[2025-01-19 09:42] LABS: Urine Blood 3+ /uL (Negative); Urine Clarity Turbid (Clear); Urine Color Yellow (Yellow); Urine Mucus FEW (None Seen); Urine Protein, UAD 2+ (Negative); Urine Specific Gravity 1.024 (1.001-1.035); Urine Squamous Epithelial Cell None Seen /hpf (<5); Urine Urobilinogen Normal (Negative); Urine WBC 47 /HPF (0-3)
[2025-01-19 09:45] LABS: Basophils # (auto) 0 10 ^3/uL (0-0.2); Basophils % (auto) 0.5 % (0.0-2.0); Eosinophils # (auto) 0.2 10 ^3/uL (0-0.8); Eosinophils % (auto) 2.6 % (0.0-7.0); Hematocrit 46.9 % (41.0-53.0); Hemoglobin 15.9 g/dL (13.5-17.5); Lymphocytes # (auto) 1.5 10 ^3/uL (0.4-5.4); Lymphocytes % (auto) 27.2 % (10.0-50.0); Mean Corpuscular Hemoglobin 28.2 pg (28.0-32.0); Mean Corpuscular Hgb Conc. 33.8 g/dL (32.0-36.0); Mean Corpuscular Volume 83.4 fL (80.0-100.0); Monocytes # (auto) 0.4 10 ^3/uL (0-1.3); Monocytes % (auto) 6.2 % (0.0-12.0); Neutrophils # (auto) 3.6 10 ^3/uL (1.6-8.6); Neutrophils % (auto) 63.5 % (37.0-80.0); Nucleated Red Blood Cells % 0.3 %; Red Blood Cells 5.63 10^6/uL (4.5-5.90); Red Cell Distribution Width 15.2 % (11.8-14.3); White Blood Cell 5.7 10^3/uL (4.4-10.8)
[2025-01-19 09:46] LABS: Alanine Aminotransferase 30 U/L (7-40); Albumin 4.5 g/dL (3.2-4.8); Alkaline Phosphatase 100 U/L (46-116); Anion Gap 10 (5-15); Aspartate Aminotransferase 20 U/L (13-40); BUN/Creatinine Ratio 12.1 (10.0-20.0); Bilirubin, Total 0.8 mg/dL (0.2-1.0); Blood Urea Nitrogen 13 mg/dL (9-23); Calcium 9.7 mg/dL (8.7-10.4); Carbon Dioxide 25 mmol/L (20-31); Chloride 107 mmol/L (98-107); Glucose 187 mg/dL (74-106); Potassium 3.7 mmol/L (3.5-5.1); Sodium 142 mmol/L (136-145); Total Protein 7.1 g/dL (5.7-8.2)
[2025-01-19 09:51] LABS: Platelet Count (auto) 104 10^3/uL (140-450)
[2025-01-19 09:53] LABS: INR 1.19 (0.9-1.15); Partial Thromboplastin Time 35.5 SEC (24.5-34.5); Prothrombin Time 12.4 sec (9.3-11.8)
== END 2025-01-19 17:00 | disposition home or self-care (01) ==
LOC: LAB 09:00
PROVIDERS: ATTEND Urology
DX: Z01.812 Encounter for preprocedural laboratory examination (principal)
CPT/HCPCS: 36415; 80053; 81001; 85025; 85610; 85730; 87086

== ENCOUNTER 2025-04-19 07:05 | Outpatient (CLI) | payer BC ==
[2025-04-19 07:31] LABS: Hematocrit 46.0 % (41.0-53.0); Hemoglobin 16.1 g/dL (13.5-17.5); Mean Corpuscular Hemoglobin 29.3 pg (28.0-32.0); Mean Corpuscular Volume 83.7 fL (80.0-100.0); Nucleated Red Blood Cells % 0.1 %
[2025-04-19 07:41] LABS: Urine Protein, UAD 2+ (Negative)
[2025-04-19 07:56] LABS: Alanine Aminotransferase 29 U/L (7-40); Anion Gap 10 (5-15); BUN/Creatinine Ratio 10.0 (10.0-20.0); Blood Urea Nitrogen 12 mg/dL (9-23); Calcium 9.1 mg/dL (8.7-10.4); Carbon Dioxide 24 mmol/L (20-31); Potassium 3.7 mmol/L (3.5-5.1); Sodium 143 mmol/L (136-145); Total Protein 7.4 g/dL (5.7-8.2); Triglycerides 147 mg/dL (< 150)
[2025-04-19 07:57] LABS: Albumin 4.5 g/dL (3.2-4.8); Alkaline Phosphatase 122 U/L (46-116); Chloride 109 mmol/L (98-107); Cholesterol 175 mg/dL (< 200); Glucose 159 mg/dL (74-106)
[2025-04-19 07:58] LABS: Bilirubin, Total 0.7 mg/dL (0.2-1.0); HDL Cholesterol 47 mg/dL (40-59)
== END 2025-04-19 17:00 | disposition home or self-care (01) ==
LOC: LAB 07:05
PROVIDERS: ATTEND Internal Medicine
DX: E11.22 Type 2 diabetes mellitus with diabetic chronic kidney disease (principal); N18.9 Chronic kidney disease, unspecified
CPT/HCPCS: 36415; 80053; 80061; 81003; 82043; 82607; 83036; 85025

== ENCOUNTER → 2025-05-30 | Outpatient (CLI) | payer BC ==
[2025-05-30 15:47] LABS: Alanine Aminotransferase 32 U/L (7-40); Albumin 4.3 g/dL (3.2-4.8); Anion Gap 9 (5-15); BUN/Creatinine Ratio 13.2 (10.0-20.0); Blood Urea Nitrogen 16 mg/dL (9-23); Calcium 9.1 mg/dL (8.7-10.4); Carbon Dioxide 25 mmol/L (20-31); Chloride 105 mmol/L (98-107); Potassium 3.9 mmol/L (3.5-5.1); Sodium 139 mmol/L (136-145); Total Protein 7.1 g/dL (5.7-8.2)
[2025-05-30 15:48] LABS: Alkaline Phosphatase 151 U/L (46-116); Bilirubin, Total 0.5 mg/dL (0.2-1.0); Glucose 276 mg/dL (74-106)
== END | disposition home or self-care (01) ==
LOC: LAB 13:53
PROVIDERS: ATTEND Internal Medicine
DX: E55.9 Vitamin D deficiency, unspecified (principal); I10 Essential (primary) hypertension
CPT/HCPCS: 36415; 80053; 82306